=== PATIENT | female | born 1950 | race Caucasian/White ===

== ENCOUNTER 2019-02-13 10:30 | Day surgery (SDC) | payer OTHER ==
[~2019-02-13] VITALS: Ht 165.1 cm; Wt 64.7 kg
[~2019-02-13 10:30] MED LIST: ATOR10 PO; Aspirin EC81 MG PO; BUTALB-ACETAMI1 EAC2 PO; Lamictal200 MG PO; PROP10 PO; Unithroid75 MCG PO; ZOLM5 PO
[2019-02-13] MEDS ORDERED: CETI5 PO (11:37)
--- NOTE | 2019-02-13 14:28 | NUR ---
02/13/19 1428 Andra Carl PT HAS NO COMPLAINS OF PAIN OR NAUSEA IN PAR.
--- NOTE | 2019-02-13 14:47 | NUR ---
02/13/19 144 Andra Carl PT IS UP IN RECLINER, HER IS AT CHAIRSIDE, THEY ARE TALKING AND JOKING AROUND.
== END 2019-02-13 15:15 | disposition home or self-care (01) ==
LOC: ORSCSDS 10:30
PROVIDERS: Podiatrist Foot & Ankle Surgery
PROC: 0SGN04Z Fusion of Left Metatarsal-Phalangeal Joint with Internal Fixation Device, Open Approach (ICD-10-PCS; principal; 2019-02-13 12:00)
PROC: 0SGQ04Z Fusion of Left Toe Phalangeal Joint with Internal Fixation Device, Open Approach (ICD-10-PCS; principal; 2019-02-13 12:00)
DX: M20.12 Hallux valgus (acquired), left foot (principal); M20.42 Other hammer toe(s) (acquired), left foot; M21.6X2 Other acquired deformities of left foot; Z79.899 Other long term (current) drug therapy; Z79.82 Long term (current) use of aspirin
CPT/HCPCS: C1713; J1100; J2250; J2405; J3010; J7120

== ENCOUNTER 2019-09-01 11:41 | Day surgery (SDC) | payer OTHER ==
[~2019-09-01] VITALS: Ht 165.1 cm; Wt 60.2 kg
[~2019-09-01 11:41] MED LIST changes: +CETI5 PO; +LIOT5 PO; +PROG100 PO; +Synthroid88 MCG PO
== END 2019-09-01 14:54 | disposition home or self-care (01) ==
LOC: ORSCSDS 11:41
DX: Z12.11 Encounter for screening for malignant neoplasm of colon (principal); D12.2 Benign neoplasm of ascending colon; D12.3 Benign neoplasm of transverse colon; K64.8 Other hemorrhoids; F32.9 Major depressive disorder, single episode, unspecified; G40.909 Epilepsy, unspecified, not intractable, without status epilepticus; Z79.82 Long term (current) use of aspirin; Z79.899 Other long term (current) drug therapy
CPT/HCPCS: 88305; J2704; J7120

== ENCOUNTER 2019-09-28 11:54 | Day surgery (SDC) | payer OTHER ==
[~2019-09-28] VITALS: Ht 165.1 cm; Wt 59.7 kg
[2019-09-28] MEDS ORDERED: SERT100 (13:24)
== END 2019-09-28 16:28 | disposition home or self-care (01) ==
LOC: ORSCSDS 11:54
PROVIDERS: Podiatrist Foot & Ankle Surgery
PROC: 0SNN0ZZ Release Left Metatarsal-Phalangeal Joint, Open Approach (ICD-10-PCS; principal; 2019-09-28 13:30)
PROC: 0HXNXZZ Transfer Left Foot Skin, External Approach (ICD-10-PCS; principal; 2019-09-28 13:30)
PROC: 0QSP04Z Reposition Left Metatarsal with Internal Fixation Device, Open Approach (ICD-10-PCS; principal; 2019-09-28 13:30)
DX: M21.612 Bunion of left foot (principal); M20.5X2 Other deformities of toe(s) (acquired), left foot; G40.909 Epilepsy, unspecified, not intractable, without status epilepticus; Z79.899 Other long term (current) drug therapy; Z79.82 Long term (current) use of aspirin
CPT/HCPCS: J0171; J1100; J2250; J2405; J2704; J3010; J3370

== ENCOUNTER 2020-01-25 11:05 | Day surgery (SDC) | payer OTHER ==
[~2020-01-25] VITALS: Ht 165.1 cm; Wt 58.6 kg
[~2020-01-25 11:05] MED LIST changes: +Fiorinal Capsu1 EACH; +SERT100
--- NOTE | 2020-01-25 14:46 | NUR ---
01/25/20 1446 Mila Carrillo PT RATES HEADACHE PAIN 7/10. PT RATES OP SITE PAIN 0/10. PT REQUESTED PAIN MEDICATION FOR HEADACHE PAIN. RN SPOKE WITH DR MULTANI AND HE GAVE VERBAL ORDER FOR PT TO HAVE 1 TAB OF PO PAIN MEDICATION PER DR HUI'S ORDERS. RN ADMINISTERED ONE TAB OF NORCO PER DR HUI AND DR MULTANI AT 1445.
== END 2020-01-25 15:28 | disposition home or self-care (01) ==
LOC: ORSCSDS 11:05
PROVIDERS: Podiatrist Foot & Ankle Surgery
PROC: 0SGP04Z Fusion of Right Toe Phalangeal Joint with Internal Fixation Device, Open Approach (ICD-10-PCS; principal; 2020-01-25 12:30)
PROC: 0SGM04Z Fusion of Right Metatarsal-Phalangeal Joint with Internal Fixation Device, Open Approach (ICD-10-PCS; principal; 2020-01-25 12:30)
DX: M20.11 Hallux valgus (acquired), right foot (principal); M20.40 Other hammer toe(s) (acquired), unspecified foot; E78.5 Hyperlipidemia, unspecified; E03.9 Hypothyroidism, unspecified; Z79.899 Other long term (current) drug therapy; Z79.82 Long term (current) use of aspirin
CPT/HCPCS: A9270-GY; C1713; J0171; J1100; J2250; J2370; J2405; J2704; J3010; J3370; J7120

== ENCOUNTER → 2021-03-16 | Outpatient (CLI) | payer OTHER | LOC: LAB SHORT 11:17 | DX: L57.0 Actinic keratosis (principal) | CPT/HCPCS: 88305 ==

== ENCOUNTER 2021-09-05 09:13 | Day surgery (SDC) | payer OTHER ==
[~2021-09-05] VITALS: Ht 162.6 cm; Wt 64.3 kg
== END 2021-09-05 12:21 | disposition home or self-care (01) ==
LOC: ORSCSDS 09:13
PROVIDERS: Internal Medicine Gastroenterology
PROC: 0DB78ZX Excision of Stomach, Pylorus, Via Natural or Artificial Opening Endoscopic, Diagnostic (ICD-10-PCS; principal; 2021-09-05 10:45)
PROC: 0D757ZZ Dilation of Esophagus, Via Natural or Artificial Opening (ICD-10-PCS; principal; 2021-09-05 10:45)
PROC: 0DB58ZX Excision of Esophagus, Via Natural or Artificial Opening Endoscopic, Diagnostic (ICD-10-PCS; principal; 2021-09-05 10:45)
DX: R13.10 Dysphagia, unspecified (principal); K21.9 Gastro-esophageal reflux disease without esophagitis; K25.9 Gastric ulcer, unspecified as acute or chronic, without hemorrhage or perforation
CPT/HCPCS: 88305; 88341; 88342; J2704; J7120

== ENCOUNTER → 2023-03-01 | Outpatient (CLI) | payer OTHER | END | disposition home or self-care (01) | LOC: LAB 13:38 → LAB SHORT 13:38 | DX: R30.0 Dysuria (principal) | CPT/HCPCS: 87086 ==